=== PATIENT | female | born 1995 | race Caucasian/White ===

== ENCOUNTER 2018-03-29 08:37 | Emergency (ER) | END 2018-03-29 12:14 | disposition home or self-care (01) ==

== ENCOUNTER 2018-05-24 02:15 | Emergency (ER) | END 2018-05-24 05:55 | disposition home or self-care (01) ==

== ENCOUNTER 2018-06-13 08:45 | Inpatient (IN) | END 2018-06-16 18:20 | disposition home or self-care (01) | DRG 766 ==